=== PATIENT | female | born 1985 | race Caucasian/White ===

== ENCOUNTER 2018-01-05 12:25 | Emergency (ER) | payer MEDICAID ==
[~2018-01-05] VITALS: Ht 165.1 cm; Wt 133.4 kg
[2018-01-05 12:37] VITALS: BP 115/84
[2018-01-05] MEDS ORDERED: diphenhydrAMINE 50 MG/ML VIAL IVP ONE (13:20)
[2018-01-05] MEDS ORDERED: METOCLOPRAMIDE 10 MG/2 ML INJ VIAL IVP ONE (13:20)
[2018-01-05] MEDS ORDERED: KETOROLAC 30 MG/ML VIAL IVP ONE (13:20)
[2018-01-05 14:21] LABS: BASOPHILS % (AUTO) 0.4 % (0.0-2.0); EOSINOPHILS # (AUTO) 0.1 K/uL (0-0.4); EOSINOPHILS % (AUTO) 1.1 % (0.0-4.0); HEMATOCRIT 46.8 % (36-48); HEMOGLOBIN 15.3 g/dL (12.0-16.0); LYMPHOCYTES # (AUTO) 3.5 K/uL (2.5-16.5); LYMPHOCYTES % (AUTO) 30.8 % (20.5-51.1); MEAN CORPUSCULAR HEMOGLOBIN 29 pg (27-31); MEAN CORPUSCULAR HGB CONC 33 g/dL (33-37); MEAN CORPUSCULAR VOLUME 89.5 fL (80-94); MONOCYTES # (AUTO) 0.8 K/uL (0.8-1.0); MONOCYTES % (AUTO) 6.7 % (1.7-9.3); NEUTROPHILS # (AUTO) 6.9 K/uL (1.8-7.7); PLATELET COUNT (AUTO) 252 K/uL (140-450); RED BLOOD CELL COUNT(AUTO) 5.23 MIL/uL (4.20-5.40); RED CELL DISTRIBUTION WIDTH 13.3 % (11.6-13.7); WHITE BLOOD COUNT (AUTO) 11.3 K/uL (4.8-10.8)
[2018-01-05 14:22] LABS: BILIRUBIN,URINE NEGATIVE (NEGATIVE); BLOOD, URINE NEGATIVE (NEGATIVE); LEUKOCYTE ESTERASE ,URINE NEGATIVE (NEGATIVE); NITRITE, URINE NEGATIVE (NEGATIVE); PH,URINE 7.5 (5.0-9.0); UGLUCOSE 3+ (NEGATIVE)
[2018-01-05 14:31] LABS: COLOR,URINE STRAW (YELLOW)
[2018-01-05 14:38] LABS: APPEARANCE,URINE CLEAR (CLEAR)
[2018-01-05 14:51] LABS: ALBUMIN 3.5 g/dL (3.4-5.0); CARBON DIOXIDE 31.2 mmol/L (21-32); CREATININE 0.8 mg/dL (0.6-1.3); POTASSIUM 4.2 mmol/L (3.5-5.1); TOTAL BILIRUBIN 0.3 mg/dL (0.0-1.0)
[2018-01-05] MEDS ORDERED: NACL 0.9% 1,000 ML IV ONE (15:20)
[2018-01-05] MEDS ORDERED: INSULIN REGULAR, HUMAN 100 UNIT/ML VIAL IV ONE ×2 (15:20→15:45)
[2018-01-05 16:42] VITALS: BP 140/88
== END 2018-01-05 16:42 | disposition home or self-care (01) ==
LOC: MED 12:25
DX: E11.65 Type 2 diabetes mellitus with hyperglycemia (principal); E86.0 Dehydration; R82.4 Acetonuria; R51 Headache; I10 Essential (primary) hypertension; Z88.6 Allergy status to analgesic agent
CPT/HCPCS: 36415; 70450; 71045; 80053; 81003; 81025; 82550; 82948; 84484; 85025; 93005; 96361; 96374; 96375; 99285; J1200; J1815; J1885; J2765; J7030; Q0092

== ENCOUNTER 2018-04-27 15:42 | Emergency (ER) | payer MEDICAID ==
[~2018-04-27] VITALS: Ht 167.6 cm; Wt 142.1 kg
[2018-04-27 15:50] VITALS: BP 124/72
--- NOTE | 2018-04-27 16:20 | NUR ---
PT. CAME INTO THE ED DUE TO EASH ALL OVER BODY X TODAY. PT. DENIES ANY N/V/D. PT. STATES " I HAD A FEVER TODAY". RR EVEN AND UNLABORED, DENIES SOB. NO PAIN AT THIS TIME. PT. IS AWAKE AND ALERT ABLE TO SPEAK IN FULL AND COMPLETE SENTENCES. ER MD NOTIFIED. WILL CONTINUE TO MONITOR. SAFETY PRECAUTIONS IMPLEMENTED.
--- NOTE | 2018-04-27 17:30 | NUR ---
PT. RESTING COMFORTABLY IN BED, RR EVEN AND UNLABORED. WILL CONTINUE TO MONITOR.
[2018-04-27] MEDS ORDERED: IBUPROFEN 800 MG TAB PO ONE (18:35)
[2018-04-27] MEDS ORDERED: diphenhydrAMINE 50 MG CAP PO ONE (18:35)
[2018-04-27] MEDS ORDERED: ACETAMINOPHEN EXTRA STRENGTH 500 MG TAB PO ONE (18:35)
[2018-04-27 18:50] VITALS: BP 136/76
--- NOTE | 2018-04-27 18:50 | NUR ---
Patient discharged with v/s stable. Written and verbal after care instructions given and explained. Patient alert, oriented and verbalized understanding of instructions. Ambulatory with steady gait. All questions addressed prior to discharge. ID band removed. Patient advised to follow up with PMD. Rx of IBUPROFEN 600MG, TYLENOL EXTRA STRENGTH 500MG ,[facility] HYDRICORTISONE CREAM given. Patient educated on indication of medication including possible reaction and side effects. Opportunity to ask questions provided and answered.
== END 2018-04-27 18:50 | disposition home or self-care (01) ==
LOC: MED 15:42
DX: B34.9 Viral infection, unspecified (principal); E11.9 Type 2 diabetes mellitus without complications; I10 Essential (primary) hypertension; Z88.5 Allergy status to narcotic agent
CPT/HCPCS: 81025; 99284; Q0163; 81002

== ENCOUNTER 2018-06-27 20:58 | Emergency (ER) | payer MEDICAID ==
[~2018-06-27] VITALS: Ht 165.1 cm; Wt 142.4 kg
[2018-06-27 20:58] VITALS: BP 138/94
--- NOTE | 2018-06-27 21:06 | NUR ---
PT AMBULATORY TO BR THEN TO ER LOBBY W/ STEADY GAIT IN STABLE CONDITION.
--- NOTE | 2018-06-27 21:59 | NUR ---
PT TAKEN TO BED 10
--- NOTE | 2018-06-27 22:24 | NUR ---
PATIENT PRESENTS TO ED WITH CHEST PAIN. PT STATES PRESSURE PAIN STARTED AROUND 1700, AND REPORTS N/V; RR SYMMETRICAL, NON-LABORED AND CLEAR BILATERALLR. HEART RRR. AAOX4 WITH EVEN AND STEADY GAIT. PATIENT STATES PAIN OF 8/10 AT THIS TIME THAT DOES NOT RADIATE; VSS; PATIENT POSITIONED FOR COMFORT; HOB ELEVATED; BEDRAILS UP X2; BED DOWN. ER MD MADE AWARE OF PT STATUS.
[2018-06-27 22:36] LABS: APPEARANCE,URINE HAZY (CLEAR); BILIRUBIN,URINE NEGATIVE (NEGATIVE); BLOOD, URINE NEGATIVE (NEGATIVE); COLOR,URINE YELLOW (YELLOW); LEUKOCYTE ESTERASE ,URINE NEGATIVE (NEGATIVE); NITRITE, URINE NEGATIVE (NEGATIVE); UGLUCOSE >=1000 (NEGATIVE)
[2018-06-27 22:53] LABS: RBC,URINE 0-5 (RARE) /HPF (0-5); WBC,URINE 0-5 (RARE) /HPF (0-5)
[2018-06-27] MEDS ORDERED: NACL 0.9% 1,000 ML IV ONE (23:30)
[2018-06-27] MEDS ORDERED: ASPIRIN 325 MG TAB PO ONE (23:30)
--- NOTE | 2018-06-27 23:55 | NUR ---
X-Ray at bedside.
[2018-06-28 00:14] LABS: BASOPHILS # (AUTO) 0.1 K/uL (0.00-0.22); BASOPHILS % (AUTO) 0.7 % (0.0-2.0); EOSINOPHILS # (AUTO) 0.2 K/uL (0-0.4); EOSINOPHILS % (AUTO) 1.6 % (0.0-4.0); HEMATOCRIT 38.8 % (36-48); HEMOGLOBIN 12.7 g/dL (12.0-16.0); LYMPHOCYTES # (AUTO) 4.4 K/uL (2.5-16.5); LYMPHOCYTES % (AUTO) 40.7 % (20.5-51.1); MEAN CORPUSCULAR HEMOGLOBIN 29 pg (27-31); MEAN CORPUSCULAR HGB CONC 33 g/dL (33-37); MEAN CORPUSCULAR VOLUME 86.8 fL (80-94); MONOCYTES # (AUTO) 0.8 K/uL (0.8-1.0); MONOCYTES % (AUTO) 7.2 % (1.7-9.3); NEUTROPHILS # (AUTO) 5.4 K/uL (1.8-7.7); NEUTROPHILS % (AUTO) 49.8 % (42.2-75.2); PLATELET COUNT (AUTO) 251 K/uL (140-450); RED BLOOD CELL COUNT(AUTO) 4.47 MIL/uL (4.20-5.40); RED CELL DISTRIBUTION WIDTH 14.3 % (11.6-13.7); WHITE BLOOD COUNT (AUTO) 10.9 K/uL (4.8-10.8)
[2018-06-28 00:21] LABS: ANION GAP 12.7 (8-16); CARBON DIOXIDE 29.1 mmol/L (21-32); CREATININE 0.9 mg/dL (0.6-1.3); POTASSIUM 3.8 mmol/L (3.5-5.1)
[2018-06-28 00:27] LABS: ALBUMIN 3.5 g/dL (3.4-5.0); TOTAL BILIRUBIN 0.2 mg/dL (0.0-1.0)
[2018-06-28 00:37] LABS: CREATINE KINASE MB 0.6 ng/mL (0-3.6)
--- NOTE | 2018-06-28 00:48 | NUR ---
PT LAYING IN BED, NO NEW NEEDS AT THIS TIME.
[2018-06-28 01:22] VITALS: BP 123/74
--- NOTE | 2018-06-28 01:22 | NUR ---
Patient discharged with v/s stable. Written and verbal after care instructions given and explained. Patient verbalized understanding. Ambulatory with steady gait. All questions addressed prior to discharge. Advised to follow up with PMD.
== END 2018-06-28 01:22 | disposition home or self-care (01) ==
LOC: MED 20:58
DX: R00.2 Palpitations (principal); E11.65 Type 2 diabetes mellitus with hyperglycemia; I10 Essential (primary) hypertension; E66.01 Morbid (severe) obesity due to excess calories; Z88.5 Allergy status to narcotic agent
CPT/HCPCS: 36415; 71045; 80053; 81001; 81025; 82550; 82553; 82948; 83690; 84484; 85025; 93005; 96360; 96361; 99284; Q0092

== ENCOUNTER 2018-07-24 00:23 | Emergency (ER) | payer MEDICAID ==
[~2018-07-24] VITALS: Ht 165.1 cm; Wt 139.3 kg
[2018-07-24 00:27] VITALS: BP 139/73
[2018-07-24] MEDS ORDERED: ACETAMIN/CODEINE 120/12MG-5ML 5 ML UDC PO ONE (01:15)
[2018-07-24 02:24] VITALS: BP 135/71
== END 2018-07-24 02:15 | disposition home or self-care (01) ==
LOC: MED 00:23
DX: J20.9 Acute bronchitis, unspecified (principal); E11.9 Type 2 diabetes mellitus without complications; I10 Essential (primary) hypertension; Z88.5 Allergy status to narcotic agent
CPT/HCPCS: 36415; 71045; 87804; 99284; Q0092

== ENCOUNTER 2018-07-26 06:18 | Emergency (ER) | payer MEDICAID ==
[~2018-07-26] VITALS: Ht 165.1 cm; Wt 136.1 kg
[2018-07-26 06:36] VITALS: BP 126/75
--- NOTE | 2018-07-26 06:42 | NUR ---
PT TAKEN TO BED 6
--- NOTE | 2018-07-26 07:27 | NUR ---
PATIENT PRESENTS TO ED WITH THE CHIEF C/O COUGH SINCE A WEEK:PLEGM W/O BLOOD. PT STATES SHE WAS TAKING ROBITUSSIN ANS PSEUDAPHED W/O RELIEF. PT C/O NAUSEA AND VOMITING, NO DIARRHEA. SKIN IS PINK/WARM/DRY; AAOX4 WITH EVEN AND STEADY GAIT; LUNGS WHEEZES BL; HR EVEN AND REGULAR. AFEBRILE AT THIS TIME. PT DENIES ANY CP. HAS SOB, OR COUGH AT THIS TIME. SATURATING 97% IN ROOM AIR. HX OF ABDOMINAL HERNIA. PATIENT STATES ABDOMINAL PAIN AT RLQ OF 10/10 AT THIS TIME. ABDOMEN SOFT ROUND AND TENDER. ACTIVE BOWEL SOUND. VSS; PATIENT POSITIONED FOR COMFORT; HOB ELEVATED; BEDRAILS UP X2; BED DOWN. ER MD MADE AWARE OF PT STATUS.
--- NOTE | 2018-07-26 07:36 | NUR ---
Dr. Levi evaluating patient at bedside.
[2018-07-26] MEDS ORDERED: CLINDAMYCIN 600 MG/4 ML VIAL IM ONE (07:45)
[2018-07-26] MEDS ORDERED: DEXAMETHASONE 10 MG/ML VIAL IM ONE (07:45)
[2018-07-26] MEDS ORDERED: ALBUTEROL SULFATE/IPRATROPIU 3 ML SOL IH ONE (07:45)
[2018-07-26] MEDS ORDERED: LEVOFLOXACIN 500 MG TAB PO ONE (07:45)
--- NOTE | 2018-07-26 07:56 | NUR ---
Assumed care of patient. Patient with no complaints. All needs met at this time. Will continue to monitor.
--- NOTE | 2018-07-26 08:08 | NUR ---
rt by bedside administering breathing txt. patient tolerating well.
--- NOTE | 2018-07-26 08:08 | NUR ---
Breathing treatment administered at bedside by respiratory therapist.
--- NOTE | 2018-07-26 08:50 | NUR ---
Dr. Levi re-evaluating patient at bedside.
--- NOTE | 2018-07-26 09:21 | NUR ---
Patient discharged with v/s stable. Written and verbal after care instructions given and explained. Patient alert, oriented and verbalized understanding of instructions. Ambulatory with steady gait. All questions addressed prior to discharge. ID band removed. Patient advised to follow up with PMD. Rx of Levaquin 500mg, Prednsione 20mg, and Promethazine [id number]/5ml given. Patient educated on indication of medication including possible reaction and side effects. Opportunity to ask questions provided and answered.
[2018-07-26 09:22] VITALS: BP 137/80
== END 2018-07-26 09:21 | disposition home or self-care (01) ==
LOC: MED 06:18
DX: J32.9 Chronic sinusitis, unspecified (principal); J40 Bronchitis, not specified as acute or chronic; E11.9 Type 2 diabetes mellitus without complications; I10 Essential (primary) hypertension; Z88.5 Allergy status to narcotic agent
CPT/HCPCS: 94640; 96372; 99283; J1100; J3490; J7620

== ENCOUNTER 2018-08-06 12:43 | Emergency (ER) | payer MEDICAID ==
[~2018-08-06] VITALS: Ht 165.1 cm; Wt 138.3 kg
[2018-08-06 12:54] VITALS: BP 126/82
--- NOTE | 2018-08-06 13:05 | NUR ---
PT. BIB SELF C/O COUGH X 2 WEEKS. PT STATES SHE WAS SENT HERE FROM CLINIC WHERE SHE WAS SEEN EARLIER TODAY. PT WAS HERE 07/26/18 FOR BRONCHITIS AND PAIN WITH COUGH. PT C/O CHEST PAIN SHARP WHEN COUGHING INTERMITTENT THAT IS NON RADIAITING. RR EVEN AND UNLABORED. LS: CLEAR THROUGHOUT BILATERALLY. SYMMETRICAL CHEST RISE AND FALL. PT. STATES " SOMETIMES I GET CHILLS AND THEN I SWEAT COLD ON AND OFF". PT. IS COLD TO TOUCH. 02: 93% RA. HOB ELEVATED. WILL CONTINUE TO MONITOR. ER MADE AWARE. SAFETY PRECAUTIONS IN PLACE.
--- NOTE | 2018-08-06 13:16 | NUR ---
Patient being evaluated by physician at bedside.
[2018-08-06] MEDS ORDERED: ALBUTEROL SULFATE/IPRATROPIU 3 ML SOL IH ONE ×2 (13:25→14:45)
[2018-08-06] MEDS ORDERED: predniSONE 20 MG TAB PO ONE (14:45)
--- NOTE | 2018-08-06 15:05 | NUR ---
RT AT BEDSIDE. PT RECIEVING BREATHING TX.
--- NOTE | 2018-08-06 16:00 | NUR ---
PT. RESTING COMFORTABLY IN BED, HOB ELEVATED. RR EVEN AND UNLABORED. VSS. WILL CONTINUE TO MONITOR.
[2018-08-06 16:42] VITALS: BP 122/86
--- NOTE | 2018-08-06 16:42 | NUR ---
Patient discharged with v/s stable. Written and verbal after care instructions given and explained. Patient alert, oriented and verbalized understanding of instructions. Ambulatory with steady gait. All questions addressed prior to discharge. ID band removed. Patient advised to follow up with PMD. Rx of ALBUTEROL INHALER, PREDNISONE 50MG given. Patient educated on indication of medication including possible reaction and side effects. Opportunity to ask questions provided and answered.
== END 2018-08-06 16:42 | disposition home or self-care (01) ==
LOC: MED 12:43
DX: J98.01 Acute bronchospasm (principal); E11.9 Type 2 diabetes mellitus without complications; I10 Essential (primary) hypertension; Z88.5 Allergy status to narcotic agent
CPT/HCPCS: 71045; 82948; 94640; 99284; J7512; J7620

== ENCOUNTER 2018-12-24 18:23 | Emergency (ER) | payer MEDICAID ==
[~2018-12-24] VITALS: Ht 165.1 cm; Wt 131.5 kg
[2018-12-24 18:40] VITALS: BP 131/81
--- NOTE | 2018-12-24 18:49 | NUR ---
PATIENT PRESENTS TO ED WITH C/O FEVER, SORE THROAT, CONGESTION , BL EAR PAIN. PMH DM, HTN, NO S/S OF DISTRESS, LUNGS CLEAR BL; HR EVEN AND REGULAR; DENIES N/V/D; SKIN IS PINK/WARM/DRY; STATED BODY ACHING 10/, VSS; PATIENT POSITIONED FOR COMFORT; HOB ELEVATED; BEDRAILS UP X2; BED DOWN. ER MD MADE AWARE OF PT STATUS.
--- NOTE | 2018-12-24 18:53 | NUR ---
Patient being evaluated by DR. VASQUEZ at bedside.
[2018-12-24] MEDS ORDERED: ONDANSETRON 4 MG ODT PO ONE (19:05)
[2018-12-24] MEDS ORDERED: PENICILLIN G BENZATHINE L-A 1.2 MU/2 ML SYR IM ONE (19:05)
[2018-12-24] MEDS ORDERED: KETOROLAC 60 MG/2 ML VIAL IM ONE (19:05)
--- NOTE | 2018-12-24 20:52 | NUR ---
Patient discharged with v/s stable. Written and verbal after care instructions given and explained. Patient alert, oriented and verbalized understanding of instructions. Ambulatory with steady gait. All questions addressed prior to discharge. ID band removed. Patient advised to follow up with PMD. Rx of IBUPROFEN, IMODIUM, KEFLEX, PROMETHAZINE given. Patient educated on indication of medication including possible reaction and side effects. Opportunity to ask questions provided and answered.
[2018-12-24 20:53] VITALS: BP 127/73
== END 2018-12-24 20:52 | disposition home or self-care (01) ==
LOC: MED 18:23
DX: J02.9 Acute pharyngitis, unspecified (principal); R19.7 Diarrhea, unspecified; H92.03 Otalgia, bilateral; E11.9 Type 2 diabetes mellitus without complications; I10 Essential (primary) hypertension; Z88.5 Allergy status to narcotic agent
CPT/HCPCS: 81002; 81025; 96372; 99283; J0561; J1885; Q0162

== ENCOUNTER 2019-03-24 20:57 | Emergency (ER) | payer MEDICAID ==
[~2019-03-24] VITALS: Ht 165.1 cm; Wt 117.5 kg
[2019-03-24 21:05] VITALS: BP 134/80
--- NOTE | 2019-03-24 21:08 | NUR ---
PT AMBULATED TO BED 4. PROVIDING URINE.
[2019-03-24] MEDS ORDERED: KETOROLAC 60 MG/2 ML VIAL IM ONE (21:20)
--- NOTE | 2019-03-24 21:30 | NUR ---
33Y FEMALE, PRESENTED TO ED, C/O SEVERE HEADACHE 10/10 AND GENERALIZED BODY TINGLING X3 HRS. PT STATED TAKING TYLENOL 3HRS AGO AT HOME WITHOUT RELIEF. +NAUSEA, NO VOMITING/BLURRY VISION. TIFFANIE HAND WITH STRONG BRUSHER. PT AAOX4, GCS 15, RR EVEN UNLABORED, ED MD DR JORDAN MADE AWARE, WILL CONTINUE TO MONITOR CLOSELY, BED LOCKED IN LOWEST POSITION, SIDERAIL UPX1. HX: HTN, DMII
[2019-03-24] MEDS ORDERED: ONDANSETRON 4 MG ODT PO ONE (21:45)
[2019-03-24 22:24] LABS: BASOPHILS # (AUTO) 0.2 K/uL (0.00-0.22); BASOPHILS % (AUTO) 1.2 % (0.0-2.0); EOSINOPHILS # (AUTO) 0.2 K/uL (0-0.4); EOSINOPHILS % (AUTO) 1.7 % (0.0-4.0); HEMATOCRIT 39.3 % (36-48); HEMOGLOBIN 13.1 g/dL (12.0-16.0); LYMPHOCYTES # (AUTO) 3.8 K/uL (2.5-16.5); LYMPHOCYTES % (AUTO) 30.7 % (20.5-51.1); MEAN CORPUSCULAR HEMOGLOBIN 29 pg (27-31); MEAN CORPUSCULAR HGB CONC 33 g/dL (33-37); MEAN CORPUSCULAR VOLUME 86.3 fL (80-94); MONOCYTES # (AUTO) 0.7 K/uL (0.8-1.0); MONOCYTES % (AUTO) 5.7 % (1.7-9.3); NEUTROPHILS # (AUTO) 7.6 K/uL (1.8-7.7); NEUTROPHILS % (AUTO) 60.7 % (42.2-75.2); PLATELET COUNT (AUTO) 311 K/uL (140-450); RED BLOOD CELL COUNT(AUTO) 4.55 MIL/uL (4.20-5.40); RED CELL DISTRIBUTION WIDTH 14.7 % (11.6-13.7); WHITE BLOOD COUNT (AUTO) 12.5 K/uL (4.8-10.8)
[2019-03-24 22:35] LABS: CARBON DIOXIDE 25.1 mmol/L (21-32); CREATININE 0.9 mg/dL (0.6-1.3); POTASSIUM 4.1 mmol/L (3.5-5.1)
[2019-03-24 22:40] LABS: ALBUMIN 3.6 g/dL (3.4-5.0); TOTAL BILIRUBIN 0.4 mg/dL (0.0-1.0)
[2019-03-24 22:43] LABS: PROTHROMBIN TIME 9.9 secs (10.8-13.4)
[2019-03-24 23:25] VITALS: BP 130/78
--- NOTE | 2019-03-24 23:25 | NUR ---
DISCHARGE PAPERS GIVEN TO PT. NO MORE C/O OF PAIN. NO N/V. VSS. RX OF MOTRIN, ZOFRAN, AND NORCO GIVEN. SIDE EFFECTS EXPLAINED. INSTRUCTED TO F/U WITH PCP AND WHEN TO RETURN TO ER. PT VERBALLIZED UNDERSTANDING OF DC INSTRUCTIONS. ALL QUESTIONS. ANSWERED.
== END 2019-03-24 23:25 | disposition home or self-care (01) ==
LOC: MED 20:57
DX: S40.021A Contusion of right upper arm, initial encounter (principal); R51 Headache; E11.9 Type 2 diabetes mellitus without complications; I10 Essential (primary) hypertension; Z98.890 Other specified postprocedural states; Z88.5 Allergy status to narcotic agent; X58.XXXA Exposure to other specified factors, initial encounter; Y92.89 Other specified places as the place of occurrence of the external cause; Y93.89 Activity, other specified; Y99.8 Other external cause status
CPT/HCPCS: 36415; 80053; 81002; 81025; 85025; 85610; 85730; 96372; 99283; J1885; Q0162

== ENCOUNTER 2019-07-30 01:14 | Emergency (ER) | payer MEDICAID ==
[~2019-07-30] VITALS: Ht 165.1 cm; Wt 128.8 kg
[2019-07-30 01:19] VITALS: BP 162/99
--- NOTE | 2019-07-30 01:31 | NUR ---
PT AMBULATED TO BED #6
--- NOTE | 2019-07-30 01:37 | NUR ---
EKG PERFORMED AT BEDSIDE
[2019-07-30] MEDS ORDERED: NITROGLYCERIN 0.4 MG TAB SL ONE (01:40)
[2019-07-30] MEDS ORDERED: ASPIRIN 325 MG TAB PO ONE (01:40)
--- NOTE | 2019-07-30 01:50 | NUR ---
PATIENT ASSESMENT COMPLETE. PT SEATED UPRIGHT IN BED. PT PLACED IN GOWN. BEDRAIL X1UP. WILL CONTINUE TO MONITOR.
[2019-07-30 01:56] LABS: BASOPHILS # (AUTO) 0.1 K/uL (0.00-0.22); BASOPHILS % (AUTO) 0.8 % (0.0-2.0); EOSINOPHILS # (AUTO) 0.2 K/uL (0-0.4); EOSINOPHILS % (AUTO) 1.9 % (0.0-4.0); HEMATOCRIT 39.5 % (36-48); HEMOGLOBIN 13.1 g/dL (12.0-16.0); LYMPHOCYTES # (AUTO) 3.6 K/uL (2.5-16.5); LYMPHOCYTES % (AUTO) 33.5 % (20.5-51.1); MEAN CORPUSCULAR HEMOGLOBIN 28 pg (27-31); MEAN CORPUSCULAR HGB CONC 33 g/dL (33-37); MEAN CORPUSCULAR VOLUME 85.2 fL (80-94); MONOCYTES # (AUTO) 0.7 K/uL (0.8-1.0); NEUTROPHILS % (AUTO) 56.8 % (42.2-75.2); PLATELET COUNT (AUTO) 273 K/uL (140-450); RED BLOOD CELL COUNT(AUTO) 4.64 MIL/uL (4.20-5.40); RED CELL DISTRIBUTION WIDTH 14.4 % (11.6-13.7); WHITE BLOOD COUNT (AUTO) 10.6 K/uL (4.8-10.8)
[2019-07-30 02:05] LABS: ANION GAP 14.2 (8-16); CARBON DIOXIDE 26.1 mmol/L (21-32); CREATININE 0.7 mg/dL (0.6-1.3); POTASSIUM 4.3 mmol/L (3.5-5.1)
[2019-07-30] MEDS ORDERED: INSULIN REGULAR, HUMAN 100 UNIT/ML VIAL SUBQ ONE (02:10)
[2019-07-30 02:11] LABS: ALBUMIN 3.5 g/dL (3.4-5.0); TOTAL BILIRUBIN 0.2 mg/dL (0.0-1.0)
[2019-07-30 02:17] LABS: APPEARANCE,URINE CLEAR (CLEAR); BILIRUBIN,URINE NEGATIVE (NEGATIVE); BLOOD, URINE TRACE-I (NEGATIVE); COLOR,URINE YELLOW (YELLOW); LEUKOCYTE ESTERASE ,URINE NEGATIVE (NEGATIVE); NITRITE, URINE NEGATIVE (NEGATIVE); PH,URINE 7.5 (5.0-9.0); UGLUCOSE 2+ (NEGATIVE)
[2019-07-30 02:26] LABS: BARBITURATE, URINE NEG. ng/ml (NEG <=200); BENZODIAZEPINE, URINE NEG. ng/mL (NEG <=200); CANNABINOID, URINE NEG. ng/mL (NEG <=50); COCAINE, URINE NEG. ng/mL (NEG <=300); OPIATE, URINE NEG. ng/mL (NEG <=2000); PHENCYCLIDINE SCREEN,URINE NEG. ng/mL (NEG <=25)
[2019-07-30 02:29] LABS: RBC,URINE 0-5 /HPF (0-5); WBC,URINE 0-5 /HPF (0-5)
[2019-07-30 02:32] LABS: FINE GRANULAR CASTS,URINE 0-10 /LPF (None Seen)
--- NOTE | 2019-07-30 02:39 | NUR ---
Dr. Rendon examining patient.
[2019-07-30] MEDS ORDERED: IBUPROFEN 600 MG TAB PO ONE (02:40)
[2019-07-30 03:21] VITALS: BP 138/85
== END 2019-07-30 03:16 | disposition home or self-care (01) ==
LOC: MED 01:14
DX: R07.9 Chest pain, unspecified (principal); E11.65 Type 2 diabetes mellitus with hyperglycemia; R51 Headache; F43.9 Reaction to severe stress, unspecified; R11.10 Vomiting, unspecified; I10 Essential (primary) hypertension; Z88.5 Allergy status to narcotic agent
CPT/HCPCS: 36415; 71046; 80053; 80305; 81001; 82948; 84484; 85025; 93005; 96372; 99284; J1815

== ENCOUNTER 2020-03-20 10:00 | Emergency (ER) | payer MEDICAID ==
[~2020-03-20] VITALS: Ht 165.1 cm; Wt 115.7 kg
[2020-03-20 10:03] VITALS: BP 147/101
--- NOTE | 2020-03-20 10:27 | NUR ---
34 Y/O FEMALE C/O HIGH BLOOD SUGAR, PT REPORTS SHE HAS HER OWN GLUCOMETER AND THIS MORNING IT WAS READING IN THE 400S. UPON ARRIVAL, PT BLOOD SUGAR WAS 136. PT STATES SHE FEELS NAUSEOUS. NO VOMITING OR DIARRHEA AT THIS TIME. RESP EVEN AND UNLABORED. VSS. PMH; DM
[2020-03-20] MEDS ORDERED: KETOROLAC 30 MG/ML VIAL IM ONE (10:35)
[2020-03-20 10:58] LABS: BASOPHILS % (AUTO) 0.2 % (0.0-2.0); EOSINOPHILS # (AUTO) 0.2 K/uL (0-0.4); EOSINOPHILS % (AUTO) 1.5 % (0.0-4.0); HEMATOCRIT 40.4 % (36-48); HEMOGLOBIN 13.5 g/dL (12.0-16.0); LYMPHOCYTES # (AUTO) 3.1 K/uL (2.5-16.5); LYMPHOCYTES % (AUTO) 29.1 % (20.5-51.1); MEAN CORPUSCULAR HEMOGLOBIN 29 pg (27-31); MEAN CORPUSCULAR HGB CONC 34 g/dL (33-37); MEAN CORPUSCULAR VOLUME 87.5 fL (80-94); MONOCYTES # (AUTO) 0.7 K/uL (0.8-1.0); MONOCYTES % (AUTO) 6.3 % (1.7-9.3); NEUTROPHILS # (AUTO) 6.8 K/uL (1.8-7.7); NEUTROPHILS % (AUTO) 62.9 % (42.2-75.2); PLATELET COUNT (AUTO) 274 K/uL (140-450); RED BLOOD CELL COUNT(AUTO) 4.61 MIL/uL (4.20-5.40); RED CELL DISTRIBUTION WIDTH 14.1 % (11.6-13.7); WHITE BLOOD COUNT (AUTO) 10.8 K/uL (4.8-10.8)
[2020-03-20 11:17] LABS: CREATININE 0.7 mg/dL (0.6-1.3)
[2020-03-20 11:30] VITALS: BP 147/101
--- NOTE | 2020-03-20 11:34 | NUR ---
Patient discharged with v/s stable. Written and verbal after care instructions given and explained. Patient alert, oriented and verbalized understanding of instructions. Ambulatory with steady gait. All questions addressed prior to discharge. ID band removed. Patient advised to follow up with PMD. Rx of FIORICET given. Patient educated on indication of medication including possible reaction and side effects. Opportunity to ask questions provided and answered.
== END 2020-03-20 11:34 | disposition home or self-care (01) ==
LOC: MED 10:00
DX: R51 Headache (principal); E11.65 Type 2 diabetes mellitus with hyperglycemia; R42 Dizziness and giddiness; I10 Essential (primary) hypertension; Z88.5 Allergy status to narcotic agent
CPT/HCPCS: 36415; 80048; 81025; 85025; 96372; 99283; J1885

== ENCOUNTER 2020-12-05 06:35 | Emergency (ER) | payer MEDICAID ==
[~2020-12-05] VITALS: Ht 165.1 cm; Wt 135.2 kg
[2020-12-05 06:41] VITALS: BP 132/86
--- NOTE | 2020-12-05 06:45 | NUR ---
PT TAKEN TO BED 11
[2020-12-05] MEDS ORDERED: NACL 0.9% 1,000 ML IV SCH (06:50)
[2020-12-05] MEDS ORDERED: KETOROLAC 30 MG/ML VIAL IVP ONE (06:50)
[2020-12-05] MEDS ORDERED: ONDANSETRON 4 MG/2 ML VIAL IVP ONE (06:50)
--- NOTE | 2020-12-05 06:50 | NUR ---
Dr. Jurado examining patient.
--- NOTE | 2020-12-05 06:55 | NUR ---
LAB AT BEDSIDE.
[2020-12-05 07:04] LABS: BASOPHILS # (AUTO) 0.1 K/uL (0.00-0.22); BASOPHILS % (AUTO) 0.4 % (0.0-2.0); EOSINOPHILS # (AUTO) 0.2 K/uL (0-0.4); EOSINOPHILS % (AUTO) 1.8 % (0.0-4.0); HEMATOCRIT 40.1 % (36-48); HEMOGLOBIN 13.4 g/dL (12.0-16.0); LYMPHOCYTES # (AUTO) 4.2 K/uL (2.5-16.5); LYMPHOCYTES % (AUTO) 37.2 % (20.5-51.1); MEAN CORPUSCULAR HEMOGLOBIN 30 pg (27-31); MEAN CORPUSCULAR HGB CONC 33 g/dL (33-37); MEAN CORPUSCULAR VOLUME 88.4 fL (80-94); MONOCYTES # (AUTO) 0.8 K/uL (0.8-1.0); MONOCYTES % (AUTO) 6.8 % (1.7-9.3); NEUTROPHILS # (AUTO) 6.1 K/uL (1.8-7.7); NEUTROPHILS % (AUTO) 53.8 % (42.2-75.2); PLATELET COUNT (AUTO) 257 K/uL (140-450); RED BLOOD CELL COUNT(AUTO) 4.53 MIL/uL (4.20-5.40); RED CELL DISTRIBUTION WIDTH 13.6 % (11.6-13.7); WHITE BLOOD COUNT (AUTO) 11.4 K/uL (4.8-10.8)
[2020-12-05 07:12] LABS: APPEARANCE,URINE CLEAR (CLEAR); BILIRUBIN,URINE NEGATIVE (NEGATIVE); BLOOD, URINE NEGATIVE (NEGATIVE); COLOR,URINE YELLOW (YELLOW); LEUKOCYTE ESTERASE ,URINE NEGATIVE (NEGATIVE); NITRITE, URINE NEGATIVE (NEGATIVE); UGLUCOSE 2+ (NEGATIVE)
[2020-12-05 07:17] LABS: RBC,URINE 0-5 /HPF (0-5); WBC,URINE 0-5 /HPF (0-5)
[2020-12-05 07:18] LABS: ALBUMIN 3.5 g/dL (3.4-5.0); CARBON DIOXIDE 28.3 mmol/L (21-32); CREATININE 0.8 mg/dL (0.6-1.3); POTASSIUM 4.3 mmol/L (3.5-5.1); TOTAL BILIRUBIN 0.3 mg/dL (0.0-1.0)
--- NOTE | 2020-12-05 07:28 | NUR ---
Patient taken to CT via carine
--- NOTE | 2020-12-05 07:29 | NUR ---
35/F presents to ED with c/o lower abdominal pain radiating to lower back along with nausea. Patient states the pain started at 2am and has persisted since. Patient states she had one episode of vomiting at 4am which brought little relief but the pain has since increased, patient denies taking anything for pain or nausea. Patient describes the pain as a 7/10 sharp pain that is tender to touch. Patient denies diarrhea, dysuria, hematuria.
--- NOTE | 2020-12-05 07:34 | NUR ---
Patient returned from CT
--- NOTE | 2020-12-05 08:51 | NUR ---
ULTRASOUND AT BEDSIDE
--- NOTE | 2020-12-05 09:04 | NUR ---
disconnected iv fluids. pt ambulated to the bathroom
--- NOTE | 2020-12-05 09:36 | NUR ---
Patient appears to be resting, states nausea and pain has resolved. Awaiting ultrasound results.
[2020-12-05] MEDS ORDERED: ONDA-24 SL (10:38)
[2020-12-05] MEDS ORDERED: ACET-8386 PO (10:38)
[2020-12-05 10:50] VITALS: BP 133/77
--- NOTE | 2020-12-05 10:50 | NUR ---
Patient discharged with v/s stable. Written and verbal after care instructions given and explained. Patient alert, oriented and verbalized understanding of instructions. Ambulatory with steady gait. All questions addressed prior to discharge. ID band removed. Patient advised to follow up with PMD. Rx of [place] and Zofran given. Patient educated on indication of medication including possible reaction and side effects. Opportunity to ask questions provided and answered.
== END 2020-12-05 10:50 | disposition home or self-care (01) ==
LOC: MED 06:35
DX: R10.32 Left lower quadrant pain (principal); E11.9 Type 2 diabetes mellitus without complications; I10 Essential (primary) hypertension; Z88.5 Allergy status to narcotic agent
CPT/HCPCS: 36415; 74176; 76830; 76856; 80053; 81001; 83605; 84703; 85025; 93976; 96361; 96374; 96375; 99285; J1885; J2405; J7030

== ENCOUNTER 2021-02-13 11:27 | Emergency (ER) | payer MEDICAID ==
[~2021-02-13] VITALS: Ht 165.1 cm; Wt 135.6 kg
[~2021-02-13 11:27] MED LIST: ACET-8386 PO; ONDA-24 SL
[2021-02-13 11:29] VITALS: BP 147/78
--- NOTE | 2021-02-13 11:38 | NUR ---
pt ambulated to bed 9 with steady gait.
--- NOTE | 2021-02-13 11:45 | NUR ---
35 Y/O FEMALE C/O HIGH BLOOD SUGAR. PT STATES SHE TOOK HER SUGAR AT HOME, 380 WHILE HER SUGAR NORMALLY IS AROUND 140.DIABETIC MEDS TAKEN AT 9:30AM. PT IS ALSO REPORTING WEAKNESS, NAUSEA, AND LIGHTHEADEDNESS BUT DENIES SYNCOPAL EPISODE. PT DENIES PAIN. PT STATED THAT HER THROAT FELT TIGHT. PT REPORTS POLYDIPSIA, POLYURIA, AND POLYPHAGIA WITH ACID TASTE IN MOUTH. DENIES VOMITING/ SOB/ DYSURIA/ CONSTIPATION. PT STATES THAT SHE LAST SAW HER PCP A FEW WEEKS AGO WITH HA1C 11.2. PT A/O X4 WITH EVEN AND UNLABORED RESPIRATIONS. PT IN GOWN, ON EMERGENCY DEPARTMENT AIDE. PT LAYING IN BED WITH BED IN LOWEST POSITION, BRAKES LOCKED, X1 SIDERAIL UP. PMH: DM, HTN MEDS: METFORMIN, JANUVIA, GLIPLIZIDE, METOPROLOL, LISINOPRIL ALLERGY: MORPHINE
--- NOTE | 2021-02-13 12:06 | NUR ---
PA VASQUEZ AT BEDSIDE EVALUATING PT
[2021-02-13] MEDS ORDERED: ONDANSETRON 4 MG ODT PO SCH (12:17)
--- NOTE | 2021-02-13 12:18 | NUR ---
EMT AT BEDSIDE FOR EKG
--- NOTE | 2021-02-13 12:26 | NUR ---
PT AMBULATED TO RESTROOM WITH STEADY GAIT FOR URINE SAMPLE
--- NOTE | 2021-02-13 12:34 | NUR ---
RAD AT BEDSIDE
--- NOTE | 2021-02-13 12:55 | NUR ---
20G IV EST TO Sabiha AC. BLOOD SAMPLE COLLECTED VIA IV AND HANDED TO AIRCRAFT MECHANIC.
[2021-02-13] MEDS ORDERED: NACL 0.9% 500 ML IV ONE (13:10)
[2021-02-13 13:14] LABS: BASOPHILS # (AUTO) 0.1 K/uL (0.00-0.22); BASOPHILS % (AUTO) 0.6 % (0.0-2.0); EOSINOPHILS # (AUTO) 0.2 K/uL (0-0.4); EOSINOPHILS % (AUTO) 1.3 % (0.0-4.0); HEMATOCRIT 40.4 % (36-48); HEMOGLOBIN 13.6 g/dL (12.0-16.0); LYMPHOCYTES # (AUTO) 3.7 K/uL (2.5-16.5); MEAN CORPUSCULAR HEMOGLOBIN 30 pg (27-31); MEAN CORPUSCULAR HGB CONC 34 g/dL (33-37); MEAN CORPUSCULAR VOLUME 88.4 fL (80-94); MONOCYTES # (AUTO) 0.7 K/uL (0.8-1.0); MONOCYTES % (AUTO) 5.8 % (1.7-9.3); NEUTROPHILS # (AUTO) 7.3 K/uL (1.8-7.7); NEUTROPHILS % (AUTO) 61.3 % (42.2-75.2); PLATELET COUNT (AUTO) 280 K/uL (140-450); RED BLOOD CELL COUNT(AUTO) 4.57 MIL/uL (4.20-5.40); RED CELL DISTRIBUTION WIDTH 13.4 % (11.6-13.7); WHITE BLOOD COUNT (AUTO) 11.9 K/uL (4.8-10.8)
[2021-02-13 13:20] LABS: CARBON DIOXIDE 30.1 mmol/L (21-32); CREATININE 0.8 mg/dL (0.6-1.3); POTASSIUM 4.1 mmol/L (3.5-5.1); TOTAL BILIRUBIN 0.2 mg/dL (0.0-1.0)
--- NOTE | 2021-02-13 13:59 | NUR ---
covering for primary RN for relief. pt currently a/o x 4, gcs 15. IV site patent with NS infusing.
--- NOTE | 2021-02-13 14:45 | NUR ---
PT RESTING IN BED WITH EVEN AND UNLABORED RESPIRATIONS. PT DETACHED FROM MONITOR TO USE THE RESTROOM.
[2021-02-13 16:43] VITALS: BP 129/61
--- NOTE | 2021-02-13 16:44 | NUR ---
Patient discharged with v/s stable. Written and verbal after care instructions ABOUT PANIC ATTACK, WEAKNESS, DIZZINESS given and explained. Patient verbalized understanding. Ambulatory with steady gait. All questions addressed prior to discharge. Advised to follow up with PMD.
== END 2021-02-13 16:44 | disposition home or self-care (01) ==
LOC: MED 11:27
DX: E11.65 Type 2 diabetes mellitus with hyperglycemia (principal); F41.9 Anxiety disorder, unspecified; R42 Dizziness and giddiness; R53.1 Weakness; R61 Generalized hyperhidrosis; I10 Essential (primary) hypertension; Z79.899 Other long term (current) drug therapy; Z88.5 Allergy status to narcotic agent
CPT/HCPCS: 36415; 71045; 80053; 81002; 81025; 84484; 85025; 93005; 96360; 99285; J7030; Q0162

== ENCOUNTER 2022-05-15 22:33 | Emergency (ER) | payer MEDICAID ==
[~2022-05-15] VITALS: Ht 167.6 cm; Wt 108.9 kg
[~2022-05-15 22:33] MED LIST changes: +ONDA-188 SL; -ONDA-24 SL
[2022-05-15 22:49] VITALS: BP 153/91
--- NOTE | 2022-05-15 22:53 | NUR ---
WALKED IN C/O PELVIC PAIN X1 WEEK AND WORSE OVER THE LAST 2 HOURS. PT WAS SEEN BY PMD AND DX MUSCULAR PAIN. +N/-V, +DIZZINESS. DENIES DYSURIA. LMP 04/11/22. 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
--- NOTE | 2022-05-15 22:54 | NUR ---
DR. THOMAS IN TRIAGE FOR MSE
[2022-05-15 23:31] LABS: APPEARANCE,URINE CLEAR (CLEAR); BILIRUBIN,URINE NEGATIVE (NEGATIVE); BLOOD, URINE NEGATIVE (NEGATIVE); COLOR,URINE YELLOW (YELLOW); LEUKOCYTE ESTERASE ,URINE NEGATIVE (NEGATIVE); NITRITE, URINE NEGATIVE (NEGATIVE); PH,URINE 7.5 (5.0-9.0); UGLUCOSE NEGATIVE (NEGATIVE)
--- NOTE | 2022-05-15 23:39 | NUR ---
PT AMB TO BED 05.
--- NOTE | 2022-05-15 23:40 | NUR ---
PT AMBULATED TO ED 5, REPORT GIVEN BY ASIM RN, PT C/O LOWER ABD PAIN, DENIES ANY VAGINAL BLEEDING OR PAIN, PT STATES IT FEELS LIKE MENSTRUAL CRAMPING, HX- RIGHT OVAIRY CYST REMOVAL, PT PLACED IN GOWN AND MONITOR.
--- NOTE | 2022-05-16 00:27 | NUR ---
Ultrasound at bedside.
[2022-05-16] MEDS ORDERED: NAPR-54 PO (00:55)
[2022-05-16] MEDS ORDERED: KETOROLAC 60 MG/2 ML VIAL IM ONE ×2 (01:35→01:36)
[2022-05-16 01:48] VITALS: BP 108/70
--- NOTE | 2022-05-16 01:50 | NUR ---
Patient discharged with v/s stable. Written and verbal after care instructions given and explained. Patient alert, oriented and verbalized understanding of instructions. Ambulatory with steady gait. All questions addressed prior to discharge. ID band removed. Patient advised to follow up with PMD. Rx of NAPROXEN SENT TO PHARMACY. Patient educated on indication of medication including possible reaction and side effects. Opportunity to ask questions provided and answered.
== END 2022-05-16 01:50 | disposition home or self-care (01) ==
LOC: MED 22:33
DX: R10.2 Pelvic and perineal pain (principal); E11.9 Type 2 diabetes mellitus without complications; I10 Essential (primary) hypertension; Z79.899 Other long term (current) drug therapy; Z88.5 Allergy status to narcotic agent
CPT/HCPCS: 76830; 81003; 81025; 96372; 99284; J1885; Q0092

== ENCOUNTER 2023-08-10 16:29 | Emergency (ER) | payer MEDICAID ==
[~2023-08-10] VITALS: Ht 165.1 cm; Wt 122.5 kg
[~2023-08-10 16:29] MED LIST changes: -ACET-8386 PO; +ACET-8905 PO; +NAPR-54 PO
[2023-08-10 16:41] VITALS: BP 127/72; PULSE 98; RESP 18; TEMP 98.2; O2SAT 98
[2023-08-10] MEDS ORDERED: NACL 0.9% 2,000 ML IV ONE (17:15)
[2023-08-10] MEDS ORDERED: ONDANSETRON 4 MG/2 ML VIAL IVP ONE (17:15)
[2023-08-10] MEDS ORDERED: KETOROLAC 30 MG/ML VIAL IVP ONE (17:15)
[2023-08-10 17:22] VITALS: O2SAT 98
[2023-08-10 17:24] LABS: BASOPHILS # (AUTO) 0.1 K/uL (0.00-0.22); BASOPHILS % (AUTO) 1.1 % (0.0-2.0); EOSINOPHILS # (AUTO) 0.2 K/uL (0-0.4); EOSINOPHILS % (AUTO) 2.2 % (0.0-4.0); HEMATOCRIT 43.4 % (36-48); HEMOGLOBIN 14.8 g/dL (12.0-16.0); LYMPHOCYTES # (AUTO) 3.6 K/uL (2.5-16.5); LYMPHOCYTES % (AUTO) 36.5 % (20.5-51.1); MEAN CORPUSCULAR HEMOGLOBIN 30 pg (27-31); MEAN CORPUSCULAR HGB CONC 34 g/dL (33-37); MEAN CORPUSCULAR VOLUME 89.1 fL (80-94); MONOCYTES # (AUTO) 0.7 K/uL (0.8-1.0); MONOCYTES % (AUTO) 6.7 % (1.7-9.3); NEUTROPHILS # (AUTO) 5.3 K/uL (1.8-7.7); NEUTROPHILS % (AUTO) 53.5 % (42.2-75.2); PLATELET COUNT (AUTO) 287 K/uL (140-450); RED BLOOD CELL COUNT(AUTO) 4.87 MIL/uL (4.20-5.40); RED CELL DISTRIBUTION WIDTH 12.9 % (11.6-13.7); WHITE BLOOD COUNT (AUTO) 9.9 K/uL (4.8-10.8)
[2023-08-10 17:31] LABS: APPEARANCE,URINE CLEAR (CLEAR); BILIRUBIN,URINE NEGATIVE (NEGATIVE); BLOOD, URINE NEGATIVE (NEGATIVE); COLOR,URINE YELLOW (YELLOW); LEUKOCYTE ESTERASE ,URINE NEGATIVE (NEGATIVE); NITRITE, URINE NEGATIVE (NEGATIVE); PROTEIN,URINE NEGATIVE (NEGATIVE); UGLUCOSE 3+ (NEGATIVE); UROBILINOGEN,URINE 0.2 EU/dL (0.2 - 1)
[2023-08-10 17:39] LABS: ALBUMIN 3.7 g/dL (3.4-5.0); ANION GAP 13.3 (8-16); CALCIUM 9.8 mg/dL (8.5-10.1); CARBON DIOXIDE 28.7 mmol/L (21-32); CREATININE 0.8 mg/dL (0.6-1.3); TOTAL BILIRUBIN 0.2 mg/dL (0.0-1.0); TOTAL PROTEIN, SERUM 8.6 g/dL (6.4-8.2)
[2023-08-10 17:46] LABS: BACTERIA,URINE None Seen /HPF (None Seen); MUCUS,URINE 1+ /LPF (None Seen); RBC,URINE 0-5 /HPF (0-5); SQUAMOUS EPITHELIAL CELL,UR 20-50 /LPF (0-3 (FEW)); TRICHOMONAS,URINE None Seen /HPF (None Seen); WBC,URINE 0-5 /HPF (0-5); YEAST,URINE Few /HPF (None Seen)
[2023-08-10 18:54] VITALS: O2SAT 98
[2023-08-10 19:45] LABS: MAGNESIUM 1.8 mg/dL (1.8-2.4); PHOSPHORUS 4.8 mg/dL (2.5-4.9)
[2023-08-10] MEDS ORDERED: INSULIN REGULAR, HUMAN 100 UNIT/ML VIAL SUBQ ONE (21:55)
[2023-08-10] MEDS ORDERED: FAMO-90 PO (21:59)
[2023-08-10 22:25] VITALS: BP 120/74; PULSE 95; RESP 16; TEMP 98.1; O2SAT 96
== END 2023-08-10 22:26 | disposition home or self-care (01) ==
LOC: MED 16:29
DX: K29.70 Gastritis, unspecified, without bleeding (principal); E87.6 Hypokalemia; E11.9 Type 2 diabetes mellitus without complications; I10 Essential (primary) hypertension; Z79.4 Long term (current) use of insulin; Z79.899 Other long term (current) drug therapy
CPT/HCPCS: 36415; 76705; 80053; 81001; 81025; 82948; 83690; 83735; 84100; 85025; 87086; 93005; 96361; 96374; 96375; 99285; J1815; J1885; J2405; J7030; Q0092

== ENCOUNTER 2024-01-22 19:58 | Emergency (ER) | payer MEDICAID, OTHER ==
[~2024-01-22] VITALS: Ht 165.1 cm; Wt 123.8 kg
[~2024-01-22 19:58] MED LIST changes: +FAMO-90 PO; +NAPR-337 PO; -NAPR-54 PO
[2024-01-22 20:28] VITALS: BP 112/75; PULSE 89; RESP 18; TEMP 97.3; O2SAT 96
[2024-01-23] MEDS: NACL 0.9% 1,000 ML IV ONE (01:22)
[2024-01-23] MEDS: diphenhydrAMINE 50 MG/ML VIAL IVP ONE (01:33)
[2024-01-23] MEDS: METOCLOPRAMIDE 10 MG/2 ML INJ VIAL IVP ONE (01:34)
[2024-01-23] MEDS ORDERED: DIPH25TA53 PO (02:20)
[2024-01-23 02:40] VITALS: BP 112/75; PULSE 89; RESP 18; TEMP 97.3; O2SAT 96
== END 2024-01-23 02:40 | disposition home or self-care (01) ==
LOC: MED 19:58
DX: T78.49XA Other allergy, initial encounter (principal); R21 Rash and other nonspecific skin eruption; R51.9 Headache, unspecified; E11.9 Type 2 diabetes mellitus without complications; I10 Essential (primary) hypertension; Z79.4 Long term (current) use of insulin; Z79.899 Other long term (current) drug therapy; Z88.5 Allergy status to narcotic agent; X58.XXXA Exposure to other specified factors, initial encounter
CPT/HCPCS: 81002; 81025; 96361; 96374; 96375; 99284; J1200; J2765; J7030